=== PATIENT | female | born 1960 | race Caucasian/White ===

== ENCOUNTER 2022-10-26 07:21 | Day surgery (SDC) | payer OTHER ==
[2022-10-25 09:22] VITALS: BP 141/90
[~2022-10-26] VITALS: Ht 160 cm; Wt 78.2 kg
--- NOTE | ~2022-10-26 | OR ---
[facility] [address] [place], [place] [address] Draft DATE OF OPERATION: 10/26/2022 SURGEON: Otilio Garcia MD PREOPERATIVE DIAGNOSES: 1. History of polyps and diverticulosis (colonoscopy [facility] greater than 10 years ago). 2. Occasional rectal bleeding. POSTOPERATIVE DIAGNOSES: 1. Low rectum inflammatory change (focal). 2. Diverticulosis. PROCEDURE: Total colonoscopy to cecum with biopsy of rectum. ANESTHESIA: Intravenous sedation; propofol infusion, Leno Stratton CRNA, preoperative antibiotic Ancef 2 g. INDICATION: This 62-year-old white woman is a patient of MARGARITA Wang. She underwent colonoscopy greater than 10 years ago in [place], [place] where she was found to have diverticulosis and polyps. She does have occasional rectal bleeding. She has no family history of colon cancer. She does have history of right total knee replacement. She is admitted at this time to undergo colonoscopy to better current characterize her bleeding problem and to assess for possible recurrent polyps. She understands risk of bleeding, infection, and perforation related to colonoscopy and wished to proceed. FINDINGS: The prep was quite good. Complete colonoscopy was undertaken of the cecum without question. She had no evidence of recurrent or new polyps. She did have diverticulosis of the sigmoid colon. Additionally, in the low rectum was an inflammatory focus covering approximately 1/3rd of the lowest portion of the rectum. It was not particularly ulcerated but was definitely erythematous and was biopsied. DESCRIPTION OF PROCEDURE: The patient was brought in the surgical endoscopy suite and placed in the lateral decubitus position, given intravenous sedation to the point of slurred speech and nystagmus. Digital rectal examination was normal. PATIENT NAME: UMU LYON OPERATIVE REPORT DATE OF : 60 REPORT #: [id number] PHYSICIAN: OTILIO GARCIA MD PCP: LETICIA VALLEJO PAC REPORT IS CONFIDENTIAL AND NOT TO BE RELEASED WITHOUT AUTHORIZATION [facility] [address] [place] [id number] Draft An Olympus video colonoscope was passed in the rectum and manipulated throughout the colon noting numerous diverticula of the sigmoid and left colon. Scope was ultimately advanced to the cecum which was fully intubated. The scope was then withdrawn and careful examination showed no sign of abnormality upon withdrawal of the scope other than diverticular change of the sigmoid. The rectum on retroflexed view showed an inflammatory focus which covered approximately 1/3rd to the low rectum but was not associated with ulceration, only significant erythema and some edema. The scope was manipulated to allow for biopsy of this area. The scope was then removed and the patient was taken to the recovery room in good condition. CONCLUDING DIAGNOSES: Low rectal inflammatory focus of uncertain etiology. Diverticulosis. No evidence of polyps. PLAN: Recommend Anusol HC suppository one p.o. b.i.d. #10. If she has recurrent bleeding, I would like to see her in the office. We will review her pathology report when it is available. She will return to the ongoing care of MARGARITA Stevenson otherwise. Would recommend also a high-fiber diet on the basis of her diverticular disease. Repeat colonoscopy would be recommended in 10 years. MD DONN Apodaca/MODL /[id number] cc: Leticia Vallejo PA-C Copies: LETICIA VALLEJO ~ PATIENT NAME: UMU LYON DONAVAN OPERATIVE REPORT DATE OF : 60 REPORT #: [id number] PHYSICIAN: OTILIO GARCIA MD PCP: LETICIA VALLEJO REPORT IS CONFIDENTIAL AND NOT TO BE RELEASED WITHOUT AUTHORIZATION
[~2022-10-26 07:21] MED LIST: DICLOFENAC SODI75 MG PO; GABAPENTIN300 MG PO; KLONOPIN1 MG PO; LISINOPRIL20 MG PO; MAGNESIUM200 M1 PO; OXYCODONE HCL5 MG PO; SENNA LAX8.6 MG PO; SUBOXONE 8 MG-1 EAC1 SL; VICODIN HP 10-1 EAC1 PO; XARELTO10 MG PO
[2022-10-26 07:32] VITALS: BP 134/69
[2022-10-26 11:07] VITALS: BP 144/80
--- NOTE | 2022-10-26 11:10 | NUR ---
10/26/22 1110 Mary Nguyen 1005 PT ARRIVED IN PACU SLEEPY C/O ABD DISCOMFORT. ABD SOFT. ENCOURAGED TO PASS FLATUS. 1012 C/O URGE TO VOID. UP TO BATHROOM WITH ONE PERSON ASSIST. 1020 VOIDED. BACK IN BED SIPPING ON COFFEE. 1030 DC INSTRUCTIONS GIVEN. ALL QUESTIONS ANSWERED. 1045 LEFT VIA W/C. INSTRUCTIONS GIVEN TO SPOUSE AT CAR.
--- NOTE | 2022-10-27 16:59 | PATH ---
[facility] [address] [place], [place] [address] Signed SPECIMEN(S): A LOW RECTUM BIOPSY SPECIMEN SOURCE: A. LOW RECTUM BIOPSY CLINICAL HISTORY: Hx polyps; rectal bleeding / diverticulosis; low rectal inflammation. FINAL PATHOLOGIC DIAGNOSIS: Low rectum biopsy: - Hyperplastic polyp (two fragments). JVR:jocelyn:[id number] MICROSCOPIC EXAMINATION: Histologic sections of all submitted blocks are examined by light microscopy. These findings, together with the gross examination, support the pathologic diagnosis. GROSS DESCRIPTION: The specimen, labeled and designated "Nola low rectum biopsy," is received in formalin and consists of two godfrey soft tissue fragments, ranging from 0.1-0.2 cm. Entirely submitted in (A1). VB (under the direct supervision of a pathologist) The Gross Description was prepared using a voice recognition system. The report was reviewed for accuracy; however, sound-alike word errors, addition and/or deletions may occur. If there is any question about this report, please contact Client Services. PERFORMING LABORATORY: The technical component was performed by [facility], [address] [place] [id number] (CLIA# [id number]). Professional interpretation was performed by [facility], [address] [place] [id number] (CLIA#: [id number]). Diagnostician: Guille Washington MD Pathologist Electronically Signed 10/27/2022 Copies: PATIENT NAME: UMU LYON PATHOLOGY DATE OF : 60 REPORT #: [id number] PHYSICIAN: ARIS GOODMAN PCP: LAURA ASHLEY PAC REPORT IS CONFIDENTIAL AND NOT TO BE RELEASED WITHOUT AUTHORIZATION [address] [address] Signed ~ PATIENT NAME: UMU LYON PATHOLOGY DATE OF : 60 REPORT #: [id number] PHYSICIAN: ARIS GOODMAN PCP: LAURA ASHLEY PAC REPORT IS CONFIDENTIAL AND NOT TO BE RELEASED WITHOUT AUTHORIZATION
== END 2022-10-26 10:45 | disposition home or self-care (01) ==
LOC: DS 07:21 → OPS 07:21 → DS 07:30 → OPS 07:30
PROVIDERS: ATTEND Surgery
PROC: 0DBP8ZX Excision of Rectum, Via Natural or Artificial Opening Endoscopic, Diagnostic (ICD-10-PCS; principal; 2022-10-26 09:00)
DX: K62.5 Hemorrhage of anus and rectum (principal); K63.5 Polyp of colon; K57.30 Diverticulosis of large intestine without perforation or abscess without bleeding; Z86.010 Personal history of colon polyps; Z79.899 Other long term (current) drug therapy; Z96.659 Presence of unspecified artificial knee joint; Z90.711 Acquired absence of uterus with remaining cervical stump
CPT/HCPCS: 00811; J0690; J2001; J2704; J7121